=== PATIENT | female | born 1945 | race Caucasian/White ===

== ENCOUNTER 2019-05-21 09:28 | Inpatient (IN) | payer MEDICARE, OTHER ==
[~2019-05-21] VITALS: Ht 170.2 cm; Wt 73.1 kg
[2019-05-21] VITALS (23 sets, daily range): BP systolic 77–155; BP diastolic 45–89; PULSE 71–89; RESP 16–24; Ht 170.2 cm; Wt 73.1 kg
[2019-05-21] MEDS ORDERED: SODIUM CHLORIDE 0.9% 1L BAG IV* STA (09:35)
[2019-05-21] MEDS ORDERED: CEFEPIME 2GM/50 ML (PMX) 50 ML IVPB STA (09:38)
[2019-05-21] MEDS ORDERED: NORepinephrine 8MG/250 ML (PMX 250 ML IV STA (09:38)
[2019-05-21] MEDS ORDERED: VANCOMYCIN 1 GM (PMX) 250 ML IVPB ONE (10:00)
[2019-05-21] MEDS ORDERED: NITROGLYCERIN (SL) 0.4 MG TAB SL PRN (11:00)
[2019-05-21] MEDS ORDERED: DOCUSATE SODIUM 100 MG CAP PO PRN (11:00)
[2019-05-21] MEDS ORDERED: ALBUTEROL/IPRATROPIUM (NEB) 3 ML AMP HHN PRN (11:00)
[2019-05-21] MEDS ORDERED: NORepinephrine 32 MG in DEXTROSE 5% 218 ML IV SCH (11:00)
[2019-05-21] MEDS ORDERED: LORAZEPAM 2 MG INJ IV PRN (11:00)
[2019-05-21] MEDS ORDERED: VANCOMYCIN IV PER PHARMACY XX SCH (11:00)
[2019-05-21] MEDS ORDERED: NACL 0.9% 3 ML SYG IV SCH (11:00)
[2019-05-21] MEDS ORDERED: HYDROCODONE/APAP (5/325) TAB PO PRN (11:00)
[2019-05-21] MEDS ORDERED: hydrALAzine 20 MG INJ IV PRN (11:00)
[2019-05-21] MEDS ORDERED: ACETAMINOPHEN 325 MG TAB PO PRN (11:00)
[2019-05-21] MEDS ORDERED: MAGNESIUM HYDROXIDE 30ML CUP PO PRN (11:00)
[2019-05-21] MEDS ORDERED: morphine 2 MG INJ IV PRN (11:00)
[2019-05-21] MEDS ORDERED: ONDANSETRON 4 MG INJ IV PRN (11:00)
[2019-05-21] MEDS ORDERED: SOD CHLORIDE 0.9% 2,000 ML IV ONE (13:00)
[2019-05-21] MEDS ORDERED: VANCOMYCIN 500 MG (PMX) 100 ML IVPB SCH (13:00)
[2019-05-21] MEDS ORDERED: FAMOTIDINE 20 MG INJ IV SCH (13:30)
[2019-05-21] MEDS: PIPER-TAZO 3.375 GM IV (PMX) 100 ML IVPB SCH ×2 (15:46→21:23)
[2019-05-21] MEDS: HEPARIN 5,000 UNIT/1 ML VIAL SC SCH ×2 (15:54→21:25)
[2019-05-21] MEDS: FAMOTIDINE 20 MG INJ IV SCH (15:54)
[2019-05-21] MEDS: SOD CHLORIDE 0.9% 1,000 ML IV SCH ×2 (15:55→22:58)
[2019-05-21] MEDS ORDERED: COLLAGENASE 5 GM (UD JAR) TOP PRN (21:00)
[2019-05-21] MEDS ORDERED: PENDING SANTYL ORDER FOR WOUND CARE XX PRN (21:00)
[2019-05-22] VITALS (56 sets, daily range): BP systolic 85–146; BP diastolic 47–131; PULSE 67–87; RESP 12–25
[2019-05-22] MEDS: PIPER-TAZO 3.375 GM IV (PMX) 100 ML IVPB SCH ×3 (06:03→21:54)
[2019-05-22] MEDS: SOD CHLORIDE 0.9% 1,000 ML IV SCH ×2 (06:54→10:01)
[2019-05-22] MEDS: HEPARIN 5,000 UNIT/1 ML VIAL SC SCH ×2 (08:17→21:57)
[2019-05-22] MEDS: COLLAGENASE 5 GM (UD JAR) TOP SCH (08:41)
[2019-05-22] MEDS ORDERED: DEXTROSE 50% 50 ML SYRINGE IV PRN ×2 (09:00)
[2019-05-22] MEDS ORDERED: GLUCOSE GEL 15 GRAM TUBE BUCCAL PRN (09:00)
[2019-05-22] MEDS ORDERED: GLUCOSE GEL 15 GRAM TUBE PO PRN ×2 (09:00)
[2019-05-22] MEDS ORDERED: GLUCAGON 1 MG INJ IM PRN (09:00)
[2019-05-22] MEDS: DEXTROSE 5% 1,000 ML IV SCH ×2 (12:07→22:27)
[2019-05-22] MEDS: FAMOTIDINE 20 MG INJ IV SCH (12:08)
[2019-05-22] MEDS: INSULIN ASPART [NOVOLOG] 3 ML PEN SC SCH ×3 (12:10→21:00)
[2019-05-22] MEDS: VANCOMYCIN 750 MG (PMX) 250 ML IVPB SCH (13:22)
[2019-05-23] VITALS (22 sets, daily range): BP systolic 117–158; BP diastolic 60–92; PULSE 63–77; RESP 12–22
[2019-05-23] MEDS: ACCU-CHEK XX SCH (02:00)
[2019-05-23] MEDS: PIPER-TAZO 3.375 GM IV (PMX) 100 ML IVPB SCH (05:53)
[2019-05-23] MEDS: POTASSIUM CHLORIDE 100 ML IVPB SCH ×2 (06:00→07:39)
[2019-05-23] MEDS: INSULIN ASPART [NOVOLOG] 3 ML PEN SC SCH ×4 (07:54→20:49)
[2019-05-23] MEDS: DEXTROSE 5% 1,000 ML IV SCH ×2 (08:42→17:41)
[2019-05-23] MEDS: COLLAGENASE 5 GM (UD JAR) TOP SCH (08:43)
[2019-05-23] MEDS: HEPARIN 5,000 UNIT/1 ML VIAL SC SCH ×2 (08:45→20:49)
[2019-05-23] MEDS: FAMOTIDINE 20 MG INJ IV SCH (13:20)
[2019-05-23] MEDS: VANCOMYCIN 750 MG (PMX) 250 ML IVPB SCH (13:21)
[2019-05-23] MEDS ORDERED: MEROPENEM 500MG/50 ML (PMX) 50 ML IVPB SCH (14:30)
[2019-05-23] MEDS ORDERED: ALTEPLASE (CATHFLO) 2 MG INJ CATHETER ONE ×2 (15:00→23:00)
[2019-05-23] MEDS: MEROPENEM 1 GM/50ML(PMX) 50 ML IVPB SCH (22:04)
[2019-05-24 02:00] VITALS: BP 158/76; PULSE 60; RESP 18
[2019-05-24] MEDS: ACCU-CHEK XX SCH (02:00)
[2019-05-24] MEDS: DEXTROSE 5% 1,000 ML IV SCH ×3 (04:00→17:41)
[2019-05-24] MEDS: MEROPENEM 1 GM/50ML(PMX) 50 ML IVPB SCH ×3 (05:09→21:40)
[2019-05-24] MEDS: INSULIN ASPART [NOVOLOG] 3 ML PEN SC SCH ×4 (08:00→21:00)
[2019-05-24 08:26] VITALS: BP 136/65; PULSE 72; RESP 16
[2019-05-24] MEDS: COLLAGENASE 5 GM (UD JAR) TOP SCH (09:31)
[2019-05-24] MEDS: HEPARIN 5,000 UNIT/1 ML VIAL SC SCH ×2 (10:37→21:43)
[2019-05-24] MEDS: FAMOTIDINE 20 MG INJ IV SCH (13:21)
[2019-05-24] MEDS ORDERED: POTASSIUM CHLORIDE 20 MEQ POWDER FOR ORAL SOLN PO ONE (14:00)
[2019-05-24 15:04] VITALS: BP 132/60; PULSE 62; RESP 18
[2019-05-24] MEDS: VANCOMYCIN HCL 250 MG/5ML POSYG PO SCH ×2 (15:23→17:41)
[2019-05-24] MEDS: DAPTOMYCIN 450 MG in SOD CHLORIDE 0.9% 100 ML IVPB SCH (15:23)
[2019-05-24 20:00] VITALS: BP 135/89; PULSE 76; RESP 18
[2019-05-24] MEDS: ASCORBIC ACID 250 MG TAB PO SCH (21:41)
[2019-05-25] MEDS: VANCOMYCIN HCL 250 MG/5ML POSYG PO SCH ×5 (00:06→17:32)
[2019-05-25] MEDS: ACCU-CHEK XX SCH (02:00)
[2019-05-25 02:16] VITALS: BP 128/57; PULSE 70; RESP 18
[2019-05-25] MEDS: DEXTROSE 5% 1,000 ML IV SCH ×3 (05:32→06:05)
[2019-05-25] MEDS: MEROPENEM 1 GM/50ML(PMX) 50 ML IVPB SCH ×4 (05:33→21:38)
[2019-05-25 08:00] VITALS: BP 142/80; PULSE 92; RESP 18
[2019-05-25] MEDS: INSULIN ASPART [NOVOLOG] 3 ML PEN SC SCH ×4 (08:00→21:00)
[2019-05-25] MEDS: MULTIVITAMINS/MINERALS TAB PO SCH (09:42)
[2019-05-25] MEDS: ASCORBIC ACID 250 MG TAB PO SCH ×2 (09:42→21:38)
[2019-05-25] MEDS: COLLAGENASE 5 GM (UD JAR) TOP SCH (09:43)
[2019-05-25] MEDS: FOLIC ACID 1 MG TAB PO SCH (09:43)
[2019-05-25] MEDS: ZINC SULFATE 220 MG CAP PO SCH (09:43)
[2019-05-25] MEDS: HEPARIN 5,000 UNIT/1 ML VIAL SC SCH ×2 (09:49→22:01)
[2019-05-25 14:00] VITALS: BP 138/78; PULSE 84; RESP 18
[2019-05-25] MEDS: FAMOTIDINE 20 MG INJ IV SCH (14:33)
[2019-05-25] MEDS: DAPTOMYCIN 450 MG in SOD CHLORIDE 0.9% 100 ML IVPB SCH (15:04)
[2019-05-25 20:00] VITALS: BP 186/97; PULSE 75; RESP 18
[2019-05-25 21:00] VITALS: BP 156/88; PULSE 87
[2019-05-25] MEDS: DAKINS 0.0125%(1/40) 473 ML SOLUTION TP SCH (21:38)
[2019-05-26] MEDS: VANCOMYCIN HCL 250 MG/5ML POSYG PO SCH ×4 (00:19→17:25)
[2019-05-26] MEDS: ACCU-CHEK XX SCH (01:03)
[2019-05-26 02:00] VITALS: BP 189/84; PULSE 72; RESP 18
[2019-05-26 04:00] VITALS: BP 145/84; PULSE 78
[2019-05-26] MEDS: MEROPENEM 1 GM/50ML(PMX) 50 ML IVPB SCH ×2 (05:34→13:34)
[2019-05-26] MEDS: INSULIN ASPART [NOVOLOG] 3 ML PEN SC SCH ×3 (07:56→17:26)
[2019-05-26 08:00] VITALS: BP 160/76; PULSE 64; RESP 20
[2019-05-26] MEDS: ZINC SULFATE 220 MG CAP PO SCH (08:12)
[2019-05-26] MEDS: ASCORBIC ACID 250 MG TAB PO SCH (08:12)
[2019-05-26] MEDS: MULTIVITAMINS/MINERALS TAB PO SCH (08:12)
[2019-05-26] MEDS: FOLIC ACID 1 MG TAB PO SCH (08:12)
[2019-05-26] MEDS: COLLAGENASE 5 GM (UD JAR) TOP SCH (08:13)
[2019-05-26] MEDS: DAKINS 0.0125%(1/40) 473 ML SOLUTION TP SCH (08:13)
[2019-05-26] MEDS: HEPARIN 5,000 UNIT/1 ML VIAL SC SCH (08:13)
[2019-05-26] MEDS ORDERED: POTASSIUM CHLORIDE 20 MEQ POWDER FOR ORAL SOLN PO ONE (08:30)
[2019-05-26] MEDS ORDERED: LISINOPRIL 10 MG TAB PO SCH (12:00)
[2019-05-26] MEDS: FAMOTIDINE 20 MG INJ IV SCH (12:14)
[2019-05-26 14:00] VITALS: BP 150/68; PULSE 72; RESP 18
== END 2019-05-26 18:00 | DRG 871 ==
LOC: E/R 09:28 → ICU 12:33 → 5EC 05-23 16:23
PROVIDERS: ADMIT Hospitalist; ATTEND Internal Medicine
PROC: 30233N1 Transfusion of Nonautologous Red Blood Cells into Peripheral Vein, Percutaneous Approach (ICD-10-PCS; principal; 2019-05-22)
DX: A41.9 Sepsis, unspecified organism (principal); R65.21 Severe sepsis with septic shock; N39.0 Urinary tract infection, site not specified; E87.0 Hyperosmolality and hypernatremia; A04.72 Enterocolitis due to Clostridium difficile, not specified as recurrent; E87.2 Acidosis; N17.9 Acute kidney failure, unspecified; L89.150 Pressure ulcer of sacral region, unstageable; I95.9 Hypotension, unspecified; D64.9 Anemia, unspecified; E11.9 Type 2 diabetes mellitus without complications; F03.90 Unspecified dementia, unspecified severity, without behavioral disturbance, psychotic disturbance, mood disturbance, and anxiety; R41.0 Disorientation, unspecified; I10 Essential (primary) hypertension; M77.9 Enthesopathy, unspecified; B96.20 Unspecified Escherichia coli [E. coli] as the cause of diseases classified elsewhere; B95.2 Enterococcus as the cause of diseases classified elsewhere; B95.62 Methicillin resistant Staphylococcus aureus infection as the cause of diseases classified elsewhere; B96.4 Proteus (mirabilis) (morganii) as the cause of diseases classified elsewhere; Z79.4 Long term (current) use of insulin; Z74.01 Bed confinement status
CPT/HCPCS: 36415; 36430; 36600; 70450; 71045; 80048; 80053; 80061; 80202; 81001; 82270; 82550; 82803; 82962; 83036; 83605; 83735; 84100; 84439; 84443; 84484; 85014; 85018; 85025; 85610; 85730; 86850; 86900; 86901; 86920; 87045; 87070; 87075; 87081; 87086; 92526; 92610; 93005; 96374; 96375; J0360; J0692; J1644; J1815; J2185; J2543; J2997; J3370; J3480; J7030; J7070; P9016